=== PATIENT | female | born 1955 | race Caucasian/White ===

== ENCOUNTER 2020-09-04 19:11 | Inpatient (IN) | payer BC ==
[~2020-09-04] VITALS: Ht 160 cm; Wt 65.1 kg
[~2020-09-04 19:11] MED LIST: ALENDRONATE SOD70 MG PO; BAYER CHEWABLE81 MG PO; BENTYL 20 MG TA20 MG PO; CALTRATE 600 M600 M1 PO; CARAFATE1 G PO; COMBIGAN OPHT DR5 ML EACH EYE; COSOPT EYE DROPS5 ML EACH EYE; CYCLOBENZAPRINE10 MG PO; DULCOLAX5 MG PO; EYE DROP; GARLIC1 CAP PO; HYDROCODON-ACE1 EAC7 PO; KLONOPIN1 MG PO; LECITHIN1200 MG PO; MEGA RED PO; MULTI-DAY VITAM1 TAB PO; NORVASC2.5 MG PO; PEPCID20 MG PO; PRAVACHOL40 MG PO; PROBIOTIC1 EAC1 PO; PROMETRIUM100 MG PO; TRAVATAN Z2.5 ML EACH EYE; VITAMIN D3400 UNI1 PO; VIVELLE-DO1 PATCH.B1 TD; VOLTAREN75 MG PO; ZEBETA5 MG PO
[2020-09-04 19:52] LABS: BASOPHILS 0.6 % (0-2); EOSINOPHILS 1.4 % (0-7); HEMATOCRIT 42.4 % (36.0-48.0); HEMOGLOBIN 14.2 g/dL (12-16); IMMATURE GRANULOCYTES 0.2 % (0-5); LYMPHOCYTE ABS# 4.73 10x3/uL (1.18-3.74); LYMPHOCYTES 47.2 % (15-50); MCH 28.7 pg (26.0-34.0); MCHC 33.5 g/dL (31.0-37.0); MCV 85.7 fL (80.0-100.0); MEAN PLATELET VOLUME 9.6 fL (7.4-10.4); MONOCYTES 6.7 % (2-11); NEUTROPHIL ABS# 4.41 10x3/uL (1.56-6.13); NEUTROPHILS 43.9 % (40-80); PLATELET COUNT 411 10x3/uL (130-400); RBC 4.95 10x6/uL (4.00-5.40); RDW 13.5 % (11.5-14.5)
[2020-09-04 19:57] LABS: CALC OSMOLALITY 266 mosm/kg (275-300); CALCIUM 9.1 mg/dL (8.5-10.1); CARBON DIOXIDE 29.2 mmol/L (21.0-32.0); CHLORIDE - SERUM 96 mmol/L (98-107); CREATININE - SERUM 0.8 mg/dL (0.6-1.3); GLUCOSE 95 mg/dL (74-106); POTASSIUM - SERUM 3.1 mmol/L (3.5-5.1); SODIUM 134 mmol/L (136-145); UREA NITROGEN 9 mg/dL (7-18); eGFR NON AFRICAN AMERICAN 77 mL/min (90-120)
[2020-09-04 19:58] LABS: PROTIME 12.2 SECONDS (11.6-15.0)
[2020-09-04 19:59] LABS: APTT 29.2 SECONDS (22.8-39.4)
[2020-09-04 20:17] LABS: ALKALINE PHOSPHATASE 97 U/L (30-120); ALT (SGPT) 24 U/L (10-68); BILIRUBIN - TOTAL 0.45 mg/dL (0.2-1.3); CKMB 1.6 U/L (0.0-3.6); CREATINE KINASE 146 UL (21-215); MAGNESIUM - SERUM 1.3 mg/dL (1.8-2.4); PROTEIN - SERUM 7.8 g/dL (6.4-8.2); THYROID STIMULATING HORMONE 1.83 uIU/mL (0.36-3.74)
[2020-09-04 20:20] LABS: TROPONIN-I < 0.017 ng/mL (0.000-0.060)
[2020-09-04 20:31] LABS: BILIRUBIN NEGATIVE (NEGATIVE); KETONE NEGATIVE (NEGATIVE); NITRITE NEGATIVE (NEGATIVE); UROBILINOGEN NORMAL mg/dL (< 2)
[2020-09-04 20:36] VITALS: BP 131/43
[2020-09-04 20:39] LABS: UDS - AMPHET NEGATIVE QUAL (NEGATIVE); UDS - BARB NEGATIVE QUAL (NEGATIVE); UDS - BENZO NEGATIVE QUAL (NEGATIVE); UDS - COCAINE NEGATIVE QUAL (NEGATIVE); UDS - OPIATE NEGATIVE QUAL (NEGATIVE); UDS - PCP NEGATIVE QUAL (NEGATIVE); UDS - THC NEGATIVE QUAL (NEGATIVE)
--- NOTE | 2020-09-04 21:17 | NUR ---
PT LEAVING FOR MRI
--- NOTE | 2020-09-04 22:49 | NUR ---
PT ARRIVED VIA W/C NO DISTRESS NOTED. FAMILY AT BEDSIDE.
--- NOTE | 2020-09-04 23:06 | NUR ---
INFORMED BY ER NURSE THAT DR CANNON SPOKE WITH NEUROLOGIST.
[2020-09-04 23:13] VITALS: BP 132/60; BMI 25.4
--- NOTE | 2020-09-04 23:46 | NUR ---
ADMISSION ASSESSMENT, HISTORY AND HOME MED LIST COMPLETED. PT ALERT, KNOWS HER NAME, BIRTHDATE, HER MEDS AND FAMILY. DOES NOT KNOW THE YEAR OR THE CURRENT PRESIDENT. IV TO LAC SL. COMBS EQUAL AND STRONG HAND AND FOOT STRENGHT. LUNGS CTA. SR PER CM HR 71. VSS. LUNGS CTA. SORES NOTED TO BILAT LOWER LEGS, SHOULDER AND UPPER BACK. PT UP TO BR. GAIT EVEN AND STEADY. VOIDED MODERATE AMOUNT OF URINE. BACK TO BED WITHOUT DIFFICULTY. NON SLID SOCKS PLACED ON FEET. DAUGHTER IN LAW AT BEDSIDE. CALL LIGHT WITHIN REACH.
--- NOTE | 2020-09-05 00:59 | NUR ---
EQUAL HAND AND FOOT STRENGHT. ALERT AND ORIENTED TO PERSON,PLACE, TIME. SOESN'T KNOW WHY SHE IS IN [facility]. O2 SAT 86% ON RA. O2 2LNC PLACED WITH O2 TO 94%. FAMILY AT BEDSIDE.
[2020-09-05 01:56] VITALS: BP 132/60
--- NOTE | 2020-09-05 02:09 | NUR ---
PT RESTING WITH EYES CLOSED. RESP EVEN AND REGULAR. FAMILY AT BEDSIDE.
--- NOTE | 2020-09-05 04:03 | NUR ---
PT RESTING WITH EYES CLOSED. RESP EVEN AND REGULAR. FAMILY AT BEDSIDE.
[2020-09-05] MEDS ORDERED: KENALOG (04:41)
[2020-09-05 05:48] VITALS: BP 116/64
--- NOTE | 2020-09-05 05:49 | NUR ---
VSS. PT MORE ORIENTED THIS AM. DENIES ANY DISCOMFORT. NEEDS MET; WILL CONTINUE TO MONITOR.
[2020-09-05 06:06] LABS: BASOPHILS 0.5 % (0-2); EOSINOPHILS 1.1 % (0-7); HEMATOCRIT 40.3 % (36.0-48.0); HEMOGLOBIN 13.2 g/dL (12-16); IMMATURE GRANULOCYTES 0.2 % (0-5); LYMPHOCYTE ABS# 3.96 10x3/uL (1.18-3.74); LYMPHOCYTES 35.9 % (15-50); MCHC 32.8 g/dL (31.0-37.0); MCV 85.6 fL (80.0-100.0); MEAN PLATELET VOLUME 9.9 fL (7.4-10.4); MONOCYTES 8.3 % (2-11); NEUTROPHIL ABS# 5.95 10x3/uL (1.56-6.13); PLATELET COUNT 442 10x3/uL (130-400); RBC 4.71 10x6/uL (4.00-5.40); RDW 13.7 % (11.5-14.5)
[2020-09-05 06:26] LABS: ALBUMIN 3.4 g/dL (3.4-5.0); ANION GAP 13.1 mmol/L (8-16); BILIRUBIN - TOTAL 0.53 mg/dL (0.2-1.3); CALCIUM 9.9 mg/dL (8.5-10.1); CREATININE - SERUM 0.9 mg/dL (0.6-1.3); PROTEIN - SERUM 6.9 g/dL (6.4-8.2)
[2020-09-05 06:30] LABS: POTASSIUM - SERUM 4.1 mmol/L (3.5-5.1)
--- NOTE | 2020-09-05 07:00 | NUR ---
RECEIVED REPORT. ASSUMED CARE OF PATIENT. PATIENT ORIENTED TO NAME, PLACE, TIME, SITUATION AT THIS TIME. SPEECH IS CLEAR. PATIENT DAUGHTER IN LAW IS AT BEDSIDE. DENIES NEEDS AT THIS TIME. CALL LIGHT WITHIN REACH. AWAITING MRI REPORT. WHITE BOARD UPDATED, BEDSIDE SHIFT REPORT COMPLETE. NO DISTRESS.
[2020-09-05 08:47] VITALS: BP 105/62
[2020-09-05 12:16] VITALS: BP 115/51
[2020-09-05 14:59] VITALS: Ht 160 cm; Wt 65.1 kg
[2020-09-05] MEDS ORDERED: PLAVIX75 MG PO (15:00)
[2020-09-05] MEDS ORDERED: NORVASC2.5 MG PO (15:00)
[2020-09-05] MEDS ORDERED: KLONOPIN1 MG PO (15:00)
[2020-09-05] MEDS ORDERED: PRAVACHOL40 MG PO (15:00)
[2020-09-05] MEDS ORDERED: ASPIRIN325 MG PO (15:33)
--- NOTE | 2020-09-05 15:45 | NUR ---
20 GAUGE IV REMOVED FROM LEFT AC. CATHETER TIP INTACT. NO BLEEDING FROM SITE. 2X2 GAUZE APPLIED AND SECURED WITH BANDAID. PATIENT DISCHARGING TO HOME. AGRICULTURE WORKER REMOVED. AWAITING DISCHARGE PAPERWORK AT THIS TIME.
--- NOTE | 2020-09-05 15:58 | NUR ---
DISCHARGE INSTRUCTIONS PROVIDED TO PATIENT AND HER SON THAT WAS AT BEDSIDE. PATIENT VERBALIZED UNDERSTANDING OF ALL INSTRUCTIONS PROVIDED. PATIENT LEFT UNIT VIA WHEELCHAIR WITH ALL PERSONAL BELONGINGS INCLUDING HER CELL PHONE AND PHONE SERVICING REP. NO DISTRESS UPON LEAVING UNIT. PATIENT THANED THIS NURSE FOR ALL CARES RENDERED, DID HER SON.
--- NOTE | 2020-09-05 16:00 | NUR ---
COPY OF HARD PRESCRIPTION FOR [facility] SIGNED AND INCLUDED IN CHART COPY OF DISCHARGE INSTRUCTIONS.
--- NOTE | 2020-09-05 16:16 | MORECARE ---
CASE MANAGEMENT DISCHARGE SUMMARY PATIENT: PARTH CASTLE UNIT: [id number] ADM DATE: 09/04/20 AGE: 64 : 59 SEX: F ROOM/BED: D.3606 AUTHOR: ISHA,DOC PHYSICIAN: REFERRING PHYSICIAN: KATE SANON MD DATE OF SERVICE: 09/05/20 Case Management Discharge Planning Summary COMMENTS ENTERED DATE: 09/05/20 16:06 CT COMMENT TYPE: Discharge Planning REVIEWER: Emmy Moyer CM met with patient to complete discharge plan and needs. Patient lives at home alone but close to son and is independent with all ADLs. She states she is able to ambulate without assistive devices and declines HHS, SNF, IPR and DME services at this time. Patient's son was present in the room and will provide transportation. CM will continue to follow and assist as needed. DCP REVIEW SUMMARY ANTICIPATED D/C DATE: EXPECTED LOS : CASE STATUS: DCP Complete INITIAL REVIEW: 09/04/2020 INITIAL REVIEWER: Emmy Moyer FINAL DISCHARGE DISPOSITION: : FINAL REVIEWER: FINAL REVIEW DATE: DCP Focus Questions & Answers QUESTION: ANSWER : PATIENT: PARTH CASTLE ENCOUNTER: [id number] MEDICAL RECORD#: [id number] ADMISSION DATE: 09/04/2020 DISCHARGE DATE: ATTENDING MD: : AGE: 64 MARITAL STATUS: W DC PLAN ID: [id number] FACILITY: [facility] PRINTED ON: 09/05/20 16:15 CT All edits/amendments must be made on the electronic document DICTATION DATE: 09/05/201614 STATE EPIDEMIOLOGIST: DM 09/05/201614 RPT#: [id number] DC DATE: STATUS: ADM IN [facility] [address] [place] [address] END OF REPORT
--- NOTE | 2020-09-05 16:27 | MORECARE ---
CASE MANAGEMENT DISCHARGE SUMMARY PATIENT: PARTH CASTLE UNIT: [id number] ADM DATE: 09/04/20 AGE: 64 : 59 SEX: F ROOM/BED: D.5997 AUTHOR: ISHA,DOC PHYSICIAN: REFERRING PHYSICIAN: KATE SANON MD DATE OF SERVICE: 09/05/20 Case Management Discharge Planning Summary COMMENTS ENTERED DATE: 09/05/20 16:06 CT COMMENT TYPE: Discharge Planning REVIEWER: Emmy Moyer CM met with patient to complete discharge plan and needs. Patient lives at home alone but close to son and is independent with all ADLs. She states she is able to ambulate without assistive devices and declines HHS, SNF, IPR and DME services at this time. Patient's son was present in the room and will provide transportation. CM will continue to follow and assist as needed. DCP REVIEW SUMMARY ANTICIPATED D/C DATE: EXPECTED LOS : CASE STATUS: DCP Complete INITIAL REVIEW: 09/04/2020 INITIAL REVIEWER: Emmy Moyer FINAL DISCHARGE DISPOSITION: : FINAL REVIEWER: FINAL REVIEW DATE: DCP Focus Questions & Answers DCP Screen QUESTION: ANSWER High Risk Factors: : None Walking limitation: Patient stated self rated walking limitation present? : No Age: : 45 - 66 Prior living environment: : Lives Alone Disability ranking: : Grade 1: No significant disability DCP Evaluation QUESTION: ANSWER Patient's ability to cope with chronic illness : d. No chronic illness Would patient like to participate in any Care Coordination programs (if applicable): : Not applicable Mental health screen: : No mental health history DCP Re-evaluation QUESTION: ANSWER Would patient like to participate in any Care Coordination programs (if applicable): : Not applicable PATIENT: PARTH CASTLE ENCOUNTER: [id number] MEDICAL RECORD#: [id number] ADMISSION DATE: 09/04/2020 DISCHARGE DATE: ATTENDING MD: : AGE: 64 MARITAL STATUS: W DC PLAN ID: [id number] FACILITY: [facility] PRINTED ON: 09/05/20 16:27 CT All edits/amendments must be made on the electronic document DICTATION DATE: 09/05/201626 SWITCHER: IRMA 09/05/201626 RPT#: [id number] DC DATE: STATUS: ADM IN [facility] [address] [facility] [place] [address] END OF REPORT
--- NOTE | 2020-09-05 16:50 | MORECARE ---
CASE MANAGEMENT DISCHARGE SUMMARY PATIENT: PARTH CASTLE UNIT: [id number] ADM DATE: 09/04/20 AGE: 64 : 59 SEX: F ROOM/BED: D.7768 AUTHOR: ISHA,DOC PHYSICIAN: REFERRING PHYSICIAN: KATE SANON MD DATE OF SERVICE: 09/05/20 Case Management Discharge Planning Summary COMMENTS ENTERED DATE: 09/05/20 16:06 CT COMMENT TYPE: Discharge Planning REVIEWER: Emmy Moyer CM met with patient to complete discharge plan and needs. Patient lives at home alone but close to son and is independent with all ADLs. She states she is able to ambulate without assistive devices and declines HHS, SNF, IPR and DME services at this time. Patient's son was present in the room and will provide transportation. CM will continue to follow and assist as needed. DCP REVIEW SUMMARY ANTICIPATED D/C DATE: EXPECTED LOS : CASE STATUS: DCP Complete INITIAL REVIEW: 09/04/2020 INITIAL REVIEWER: Emmy Moyer FINAL DISCHARGE DISPOSITION: : FINAL REVIEWER: FINAL REVIEW DATE: DCP Focus Questions & Answers DCP Screen QUESTION: ANSWER High Risk Factors: : None Walking limitation: Patient stated self rated walking limitation present? : No Age: : 45 - 66 Prior living environment: : Lives Alone Disability ranking: : Grade 1: No significant disability DCP Evaluation QUESTION: ANSWER Patient's ability to cope with chronic illness : a. Adequate (0-3 ED visits in 6 mos., adequate financial resources, attends scheduled appts.) Patient's current cognitive status: : *Oriented to person, place, situation, time and present Family / Caregiver's ability to cope with chronic illness: : a. Adequate (ability to meet patient's medical needs, ensures patient attends medical appts.) Patient and/or caregiver agree upon recommended discharge plan? : Yes Physical Status: : Independent with ADL's Family / Caregiver's ability to cope with chronic illness: : a. Adequate (ability to meet patient's medical needs, ensures patient attends medical appts.) Functional screen assessment: : No issues identified Does the patient have the ability to pay for or attain post discharge needs / services? : Yes Living Arrangements: : Home Alone with Support Is there a likelihood that the patient will require additional services to return to the preadmission environment? : Yes Equipment needed for post hospitalization: : None Baseline cognitive status: : *Oriented to person, place, situation, time and present Baseline cognitive status: : Alert Living arrangements comments: : Patient's home is located close to son's home. Patient with capacity for self-care or can be cared for in same environment as prior to hospitalization? : Yes Results of this evaluation have been discussed with: : Patient Preadmission facility can/cannot provide post hospital level of care needs: : Can - at same level of care as preadmission Medication Management: : Patient states can read and understand medication labels Pharmacy name(s): : [facility] Planned post hospital services available for patient? : No Does Patient have transportation to get home and to follow-up medical appointments when discharged from the hospital? : Yes Would patient like to participate in any Care Coordination programs (if applicable): : Not applicable Comments: : Transportation provided by son who lives close to patient. Does the patient have electricity at home? : Yes Does the patient have running water in their house? : Yes Equipment in use: : None Mental health screen: : No mental health history DCP Re-evaluation QUESTION: ANSWER Would patient like to participate in any Care Coordination programs (if applicable): : Not applicable PATIENT: PARTH CASTLE ENCOUNTER: [id number] MEDICAL RECORD#: [id number] ADMISSION DATE: 09/04/2020 DISCHARGE DATE: ATTENDING MD: SALLY: AGE: 64 MARITAL STATUS: W DC PLAN ID: [id number] FACILITY: [facility] PRINTED ON: 09/05/20 16:50 CT All edits/amendments must be made on the electronic document DICTATION DATE: 09/05/201648 S[employer]IOR [employer] ENGINEER: IRMA 09/05/201648 RPT#: [id number] DC DATE: STATUS: ADM IN [facility] [address] [place] [address] END OF REPORT
--- NOTE | 2020-09-05 17:31 | MORECARE ---
CASE MANAGEMENT DISCHARGE SUMMARY PATIENT: PARTH CASTLE UNIT: [id number] ADM DATE: 09/04/20 AGE: 64 : 59 SEX: F ROOM/BED: D.4828 AUTHOR: ISHA,DOC PHYSICIAN: REFERRING PHYSICIAN: KATE SANON MD DATE OF SERVICE: 09/05/20 Case Management Discharge Planning Summary COMMENTS ENTERED DATE: 09/05/20 16:06 CT COMMENT TYPE: Discharge Planning REVIEWER: Emmy Moyer CM met with patient to complete discharge plan and needs. Patient lives at home alone but close to son and is independent with all ADLs. She states she is able to ambulate without assistive devices and declines HHS, SNF, IPR and DME services at this time. Patient's son was present in the room and will provide transportation. CM will continue to follow and assist as needed. DCP REVIEW SUMMARY ANTICIPATED D/C DATE: EXPECTED LOS : CASE STATUS: DCP Complete INITIAL REVIEW: 09/04/2020 INITIAL REVIEWER: Emmy Moyer FINAL DISCHARGE DISPOSITION: : FINAL REVIEWER: FINAL REVIEW DATE: DCP Focus Questions & Answers DCP Screen QUESTION: ANSWER High Risk Factors: : None Walking limitation: Patient stated self rated walking limitation present? : No Age: : 45 - 64 Prior living environment: : Lives Alone Disability ranking: : Grade 1: No significant disability DCP Evaluation QUESTION: ANSWER Patient's ability to cope with chronic illness : a. Adequate (0-3 ED visits in 6 mos., adequate financial resources, attends scheduled appts.) Patient's current cognitive status: : *Oriented to person, place, situation, time and present Family / Caregiver's ability to cope with chronic illness: : a. Adequate (ability to meet patient's medical needs, ensures patient attends medical appts.) Patient and/or caregiver agree upon recommended discharge plan? : Yes Physical Status: : Independent with ADL's Family / Caregiver's ability to cope with chronic illness: : a. Adequate (ability to meet patient's medical needs, ensures patient attends medical appts.) Functional screen assessment: : No issues identified Does the patient have the ability to pay for or attain post discharge needs / services? : Yes Living Arrangements: : Home Alone with Support Is there a likelihood that the patient will require additional services to return to the preadmission environment? : Yes Equipment needed for post hospitalization: : None Baseline cognitive status: : *Oriented to person, place, situation, time and present Baseline cognitive status: : Alert Living arrangements comments: : Patient's home is located close to son's home. Patient with capacity for self-care or can be cared for in same environment as prior to hospitalization? : Yes Results of this evaluation have been discussed with: : Patient Preadmission facility can/cannot provide post hospital level of care needs: : Can - at same level of care as preadmission Medication Management: : Patient states can read and understand medication labels Pharmacy name(s): : [facility] Planned post hospital services available for patient? : No Does Patient have transportation to get home and to follow-up medical appointments when discharged from the hospital? : Yes Would patient like to participate in any Care Coordination programs (if applicable): : Not applicable Comments: : Transportation provided by son who lives close to patient. Does the patient have electricity at home? : Yes Does the patient have running water in their house? : Yes Equipment in use: : None Mental health screen: : No mental health history DCP Re-evaluation QUESTION: ANSWER Would patient like to participate in any Care Coordination programs (if applicable): : Not applicable PATIENT: PARTH CASTLE ENCOUNTER: [id number] MEDICAL RECORD#: [id number] ADMISSION DATE: 09/04/2020 DISCHARGE DATE: 09/05/2020 ATTENDING MD: SALLY: AGE: 64 MARITAL STATUS: W DC PLAN ID: [id number] FACILITY: [facility] PRINTED ON: 09/05/20 17:31 CT All edits/amendments must be made on the electronic document DICTATION DATE: 09/05/201730 DIRECTOR MERIT SYSTEM: IRMA 09/05/201730 RPT#: [id number] DC DATE:09/05/20 STATUS: DIS IN [facility] [address] [place] [address] END OF REPORT
== END 2020-09-05 17:25 | disposition home or self-care (01) | DRG 69 ==
LOC: D.ER 19:11 → D.M2 21:35
PROVIDERS: Emergency Medicine; ADMIT Emergency Medicine; ATTEND Emergency Medicine
DX: G45.0 Vertebro-basilar artery syndrome (principal); R47.01 Aphasia; I10 Essential (primary) hypertension; R47.81 Slurred speech